=== PATIENT | male | born 1960 ===

== ENCOUNTER 2024-09-09 05:45 | Day surgery (SDC) | payer OTHER ==
[2024-09-01 08:08] LABS: HEMATOCRIT 40.9 % (39.0-48.0); HEMOGLOBIN 14.3 g/dL (13-16.00); MEAN CELL VOLUME 92.2 fL (80.0-100.00); MEAN CORPUSCULAR HEMOGLOBIN 32.2 pg (27.00-32.0); PLATELET COUNT 214 K/uL (150-450); RED BLOOD COUNT 4.44 M/uL (4.00-6.00); RED CELL DISTRIBUTION WIDTH 13.1 % (11.5-14.5)
[2024-09-01 08:11] VITALS: BP 139/82
[2024-09-01 08:14] LABS: PH,URINE 6.5 (5.0-8.0); URINE APPEARANCE Clear; URINE BILIRRUBIN Negative (NEGATIVE); URINE BLOOD Negative; URINE COLOR Yellow; URINE GLUCOSE Negative (NEGATIVE); URINE KETONE Negative (NEGATIVE); URINE LEUKOCYTE Negative; URINE NITRATE Negative; URINE PROTEIN Negative (NEGATIVE); URINE UROBILINOGEN 0.2 E.U./dl
[2024-09-01 08:17] LABS: URINE RBC 7.1 uL (0.0-20.8)
[2024-09-01 08:31] LABS: INR 1.02; PARTIAL THROMBOPLASTIN TIME 27.4 SECONDS (22.0-34.0); PROTHROMBIN TIME 11.1 SECONDS (9.0-11.5)
[2024-09-01 08:53] LABS: URINE BACTERIA 0 uL (0.0-1933); URINE WBC 0 uL (0.0-23.2)
[2024-09-01 09:20] LABS: ALBUMIN 3.9 gm/dL (3.4-5.0); BILIRUBIN TOTAL 0.88 mg/dL (0.3-1.2); CALCIUM 9.7 mg/dL (8.5-10.1); CREATININE SERUM 1.13 mg/dL (0.70-1.30); GFR 65.33; GLOBULINA 3.1 G/DL (2.4-3.5); POTASSIUM 4.18 mEq/L (3.5-5.1)
[~2024-09-09] VITALS: Ht 175.3 cm; Wt 108.9 kg
[~2024-09-09 05:45] MED LIST: ATIVAN0.5 M1 PO; CARDURA XL4 MG PO; COZAAR100 MG PO; CYMBALTA60 MG PO; HYDROCHLOROTHIA25 MG PO; LANTUS SOL100 UNIT/1; MOUNJARO2.5 MG/0.5; PLAVIX75 MG PO; TOPROL XL50 M1 PO; TRAZODONE HCL50 MG PO; WELLBUTRIN SR150 MG PO; [UNRECOGNIZED DRUG - OTHER]
[2024-09-09] MEDS ORDERED: LIDOCAINE HCL 1%/EPINEPHRINE 20ML VIAL IJ ONE (13:45)
[2024-09-09] MEDS ORDERED: CEFAZOLIN SODIUM 1,000 MG in 0.9 % SODIUM CHLORIDE 50 ML IV ONE (13:45)
[2024-09-09] MEDS ORDERED: LIDOCAINE HCL 1% 20 ML VIAL IJ ONE (13:45)
== END 2024-09-09 15:40 | disposition home or self-care (01) ==
LOC: CIR.AMB 05:45
PROVIDERS: ATTEND Surgery
DX: D21.6 Benign neoplasm of connective and other soft tissue of trunk, unspecified (principal); Z88.6 Allergy status to analgesic agent; Z91.013 Allergy to seafood